=== PATIENT | male | born 1975 | race Caucasian/White ===

== ENCOUNTER 2017-06-22 14:55 | Emergency (ER) | payer OTHER ==
[~2017-06-22] VITALS: Ht 182.9 cm; Wt 106.1 kg
[2017-06-22] MEDS ORDERED: ALPR1 PO (15:05)
== END 2017-06-22 16:21 | disposition home or self-care (01) ==
LOC: ER 14:55
DX: S63.501A Unspecified sprain of right wrist, initial encounter (principal); S83.92XA Sprain of unspecified site of left knee, initial encounter; F41.9 Anxiety disorder, unspecified; F17.200 Nicotine dependence, unspecified, uncomplicated; Z88.6 Allergy status to analgesic agent; Z79.899 Other long term (current) drug therapy; W23.0XXA Caught, crushed, jammed, or pinched between moving objects, initial encounter
CPT/HCPCS: 73110; 73562-LT; 99283